=== PATIENT | female | born 1955 | race Hispanic/Latino ===

== ENCOUNTER → 2018-09-19 | Outpatient (CLI) | payer OTHER, MEDICAID | END | disposition home or self-care (01) | LOC: RAH 14:37 | PROVIDERS: ATTEND Family Medicine | DX: Z12.31 Encounter for screening mammogram for malignant neoplasm of breast (principal) | CPT/HCPCS: 77067 ==

== ENCOUNTER → 2019-10-28 | Outpatient (CLI) | payer OTHER, MEDICAID | END | disposition home or self-care (01) | LOC: OIH 13:23 | PROVIDERS: ATTEND Family Medicine | DX: J43.9 Emphysema, unspecified (principal) | CPT/HCPCS: 71046 ==

== ENCOUNTER 2022-09-21 11:16 | Emergency (ER) | payer OTHER, MEDICAID ==
[~2022-09-21] VITALS: Ht 154.9 cm; Wt 47.2 kg
[2022-09-21 12:08] VITALS: BP 160/71
[2022-09-21] MEDS ORDERED: 0.9%NACL 1000ML 1,000 ML IV ONE (13:00)
[2022-09-21] MEDS ORDERED: CEFTRIAXONE 1G VIAL IVP ONE (13:00)
[2022-09-21] MEDS ORDERED: PANTOPRAZOLE 40 MG/VIAL IVP ONE (13:00)
[2022-09-21 13:06] LABS: BASOPHILS % (AUTO) 0.5 % (0.0-5.0); EOSINOPHILS % (AUTO) 1.4 % (0.0-8.0); HEMATOCRIT 39.3 % (36-48); LYMPHOCYTES % (AUTO) 19.8 % (21.0-51.0); MEAN CORPUSCULAR HEMOGLOBIN 30.2 pg (27.0-33.0); MEAN CORPUSCULAR HGB CONC 33.8 g/dL (32.0-36.0); MEAN CORPUSCULAR VOLUME 89.3 fL (79-99); MONOCYTES % (AUTO) 11.8 % (3.0-13.0); NEUTROPHILS % (AUTO) 66.2 % (40.0-77.0); PLATELET COUNT (AUTO) 253 K/uL (130-400); RED CELL DISTRIBUTION WIDTH 12.4 % (11.0-15.5); WHITE BLOOD COUNT (AUTO) 5.9 K/uL (4.8-10.8)
[2022-09-21 13:15] LABS: CREATININE 0.7 mg/dL (0.5-1.5); POTASSIUM 3.7 mmol/L (3.5-5.1)
[2022-09-21 13:17] LABS: ALBUMIN 3.5 g/dL (3.5-5.0); CRP QUANTITATIVE 9.8 mg/L (0.00-9.0); TOTAL PROTEIN, SERUM 6.8 g/dL (6.0-8.3)
[2022-09-21] MEDS ORDERED: IOHEXOL 350 MG/ML 100ML INFUS..BTL IV ONE (13:57)
[2022-09-21 14:16] LABS: APPEARANCE,URINE CLEAR (CLEAR); BILIRUBIN,URINE 0.5 mg/dL (NEGATIVE); COLOR,URINE YELLOW (YELLOW); GLUCOSE, URINE (UA) NEGATIVE (NEGATIVE); KETONES,URINE >=80 mg/dL (NEGATIVE); LEUKOCYTE ESTERASE ,URINE NEGATIVE Leu/uL (NEGATIVE); NITRATE,URINE NEGATIVE (NEGATIVE); OCCULT BLOOD,URINE LARGE (NEGATIVE); PH,URINE 5.5 (5.0-8.0); PROTEIN,URINE 30 mg/dL (NEGATIVE); UROBILINOGEN,URINE 0.2 mg/dL (0.2-1.0)
[2022-09-21 14:21] LABS: BACTERIA,URINE MOD /HPF (None Seen); MUCUS,URINE MANY LPF (None Seen); RBC,URINE 26-50 /HPF (0-1); SQUAMOUS EPITHELIAL CELL,UR RARE /HPF (0-2)
== END 2022-09-21 15:38 | disposition home or self-care (01) ==
LOC: EDH 11:16
DX: R31.9 Hematuria, unspecified (principal); J44.9 Chronic obstructive pulmonary disease, unspecified; I10 Essential (primary) hypertension; M19.90 Unspecified osteoarthritis, unspecified site; Z79.899 Other long term (current) drug therapy
CPT/HCPCS: 99285; 74177; 96374; 71045; 96375; 82270; 80053; 85025; 86140; 81001; 36415; J7030; J0696; C9113; Q9967

== ENCOUNTER 2023-02-14 13:18 | Emergency (ER) | payer MEDICARE, OTHER ==
[~2023-02-14] VITALS: Ht 147.3 cm; Wt 47.6 kg
[2023-02-14] MEDS ORDERED: TETANUS/DIPHTHERIA TOXOID [ADULT] 0.5 ML VIAL IM ONE (14:30)
[2023-02-14 16:04] VITALS: BP 162/70; PULSE 66; RESP 18; O2SAT 99
== END 2023-02-14 16:18 | disposition home or self-care (01) ==
LOC: EDH 13:18
DX: S90.121A Contusion of right lesser toe(s) without damage to nail, initial encounter (principal); I10 Essential (primary) hypertension; J44.9 Chronic obstructive pulmonary disease, unspecified; M19.90 Unspecified osteoarthritis, unspecified site; F41.9 Anxiety disorder, unspecified; F32.A Depression, unspecified; Z88.0 Allergy status to penicillin; X58.XXXA Exposure to other specified factors, initial encounter; Y93.89 Activity, other specified; Y92.89 Other specified places as the place of occurrence of the external cause; Y99.8 Other external cause status
CPT/HCPCS: 73660; 90471; 90714

== ENCOUNTER 2024-12-12 10:12 | Emergency (ER) | payer MEDICARE ==
[~2024-12-12] VITALS: Ht 154.9 cm; Wt 44.9 kg
--- NOTE | 2024-12-12 10:39 | ERN ---
ED Note History of Present Illness Stated Complaint: RIGHT TOE PAIN Chief Complaint: Toe Pain/Injury Time Seen by MD: 10:15 Time Seen by Midlevel: 10:15 Dictation: Patient is a 69-year-old female with a history of hypertension, depression, osteoporosis who presents to the emergency department with complaints of right 4th toe pain. Patient reports that on Monday she accidentally bumped it into a wood cabinet causing it to have a laceration. Patient then reported that again she hit it on another wood cabinet. Unknown Last tetanus denies any other injuries. Allergies: Coded Allergies: Penicillins (Unverified Allergy, Unknown, 02/14/23) Past Medical History Past Medical History: COPD, Hypertension Additional Past Medical Hx: OSTEOPOROSIS, DEPRESSION, ANXIETY, ARTHRITIS Surgical History: None RN Note Reviewed/Agreed w/PFSH: Yes Review of System Dictation Constitutional: Negative for fever,chills, and weight loss Eyes: Negative for injury, pain,redness, and discharge ENT: Negative for injury,pain or swelling Cardiovascular: Negative for chest pain, palpitations, and edema Respiratory: Negative for shortness of breath, cough, and wheezing, Abdomen/GI: Negative for abdominal pain, nausea, vomiting, diarrhea, and constipation Back: Negative for injury and pain : Negative for injury, bleeding and discharge MS/Extremity: Positive for right 4th toe injury Skin: Negative for rash, and discoloration laceration to right 4th toe Neuro: Negative for headache, weakness, numbness, tingling, and seizure Psych: Negative for suicide ideation, homicidal ideation, and hallucinations Initial Vital Sign VS Vital Signs Date Time Temp Pulse Resp B/P (MAP) Pulse Ox O2 Delivery O2 Flow Rate FiO2 12/12/24 10:15 99.1 96 16 157/69 98 Room Air Physical Exam Dictation Vital Signs reviewed General Appearance: Alert, oriented x 3, no acute distress, well developed, nourished. Head and Face: non-traumatic. Eyes: PERRL, pink conjunctivas, eyelid no trauma, anterior chamber with arcus senilis. Ears: Pinnas intact and no signs of trauma or erythema ear canals clear and no discharge TM no erythema Nose: No discharge, no bleeding. Oropharynx: Mouth normal, tongue pink. pharynx clear,no erythema, tonsils no exudates, no abscesses noted, mucous membrane moist Neck: Supple, non-tender, no thyromegaly, no masses, no JVD, no bruits Breast:Deferred Chest:No tenderness, no crepitus, no paradoxical movement, no retractions Lungs:Clear, well-ventilated, symmetric, no rales, no wheezing, no rhonchi, no stridor, good breath sounds bilaterally Heart: Regular rate, regular rhythm, no murmur, no gallops Vascular: no peripheral edema, Abdomen: Soft, positive bowel sounds, nondistended, no guarding, nontender, no rebound, no masses no hepatomegaly, no splenomegaly, no Cagle's sign, no hernias. Rectal: Deferred Genital: Deferred Neurological: Normal speech, motor function intact, sensory function intact Musculoskeletal: Neck nontender, full range of motion, back nontender, full range of motion, Extremities: nontender, full range of motion , right 4th toe with swelling, less than 1 cm to dorsal aspect of right toe, no active bleeding, scabbing, cap refill less than 2 seconds Skin: Color pink, dry, no turgor, no rash, no lacerations, no abrasions, no contusions. Lymphatic: Deferred Results (Laboratory/Radiology) Laboratory/Radiology REASON: right 4th toe injury ORDERING PHYSICIAN: XIOMARA RAMOS PROCEDURE: TOES RT - TOE(S) 2+VWS RT TOE(S) 2+VWS RT HISTORY: Right fourth toe injury COMPARISON: None TECHNIQUE: 3 images of right fourth toe were obtained. FINDINGS: There is no acute displaced fracture or dislocation. Degenerative changes are seen. IMPRESSION: 1. Findings as described above. Labs Reviewed?: Yes ED Course ED Course Orders Procedure Category Date Status Time Toe(S) 2+Vws Rt RAD 12/12/24 Resulted 10:32 Tetanus,Diphtheria PHA 12/12/24 Complete Tox [Adult] (Diphther 11:00 Ketorolac PHA 12/12/24 Complete Tromethamine 15mg/Ml 11:00 Acetaminophen 500mg PHA 12/12/24 Complete Tab (Tylenol 500mg T 11:00 Current Medications Medications (Trade) Dose Ordered Sig/[place] Route PRN Reason Start Time Stop Time Status Last Admin Dose Admin Acetaminophen (TYLenol 500MG TAB) 1,000 mg ONCE ONCE PO 12/12/24 11:00 12/12/24 11:01 DC 12/12/24 10:56 Ketorolac Tromethamine (toRADol) 15 mg ONCE ONCE IM 12/12/24 11:00 12/12/24 11:01 DC 12/12/24 10:57 Tetanus/ Diphtheria Toxoids Adsorbed (DiphthERIA-teTANUS TOXOID [ADULT]/ DECAVAC) 0.5 ml ONCE ONCE IM 12/12/24 11:00 12/12/24 11:01 DC 12/12/24 10:59 Vital Signs Date Time Temp Pulse Resp B/P (MAP) Pulse Ox O2 Delivery O2 Flow Rate FiO2 12/12/24 10:15 99.1 96 16 157/69 98 Room Air Medical Decision Making MDM Patient is a 69-year-old female with a history of hypertension, depression, osteoporosis who presents to the emergency department with complaints of right 4th toe pain. Patient reports that on Monday she accidentally bumped it into a wood cabinet causing it to have a laceration. Patient then reported that again she hit it on another wood cabinet. Unknown Last tetanus denies any other injuries. X-ray showed no acute fractures or dislocations. Patient laceration appears to be healing well, no drainage, scabbing noted. Patient instructed to wear of the shoes to avoid any further injury. Patient in no acute distress will be discharged to follow up with PCP. Differential diagnosis: Toe fracture, laceration, toe contusion Need for hospitalization: Patient does not meet criteria for hospitalization. There are no social concerns with this patient. DX & DISP Disposition: Discharge Departure Impression: Primary Impression: Contusion, toe Condition: Stable Additional Instructions: Please follow up with your primary doctor in 1-2 days. About being barefooted to prevent any further injury. If symptoms worsen please return to ER. FOLLOW-UP WITH PRIMARY CARE PROVIDER IN 1 TO 2 DAYS. TAKE MEDICATIONS DIRECTED HERE IN THE EMERGENCY ROOM. OKAY TO CONTINUE HOME MEDICATIONS UNLESS OTHERWISE DISCUSSED DURING YOUR VISIT IN THE EMERGENCY ROOM TODAY. RETURN TO YOUR NEAREST EMERGENCY ROOM IF SYMPTOMS WORSEN OR IF THERE IS NO IMPROVEMENT. CALL 911 IF YOU NEED IMMEDIATE ASSISTANCE. TAKE TYLENOL OR MOTRIN [id number] NEEDED AND IF NO CONTRAINDICATIONS ARE PRESENT. INCREASE ORAL HYDRATION. A WOUND CULTURE OR URINE CULTURE WAS ORDERED HERE IN THE EMERGENCY ROOM DEPARTMENT PLEASE FOLLOW-UP WITH PRIMARY CARE PROVIDER AND ADVISE THEM TO GET REPEAT PORTS FROM OUR FACILITY. IF YOU HAD ANY JAIMIE WRAP/SPLINTS THAT WERE APPLIED HERE, PLEASE DO NOT REMOVE THEM UNTIL YOU SEE YOUR PRIMARY CARE OR SPECIALTY. Referrals: STEPHANIE HARGROVE MD (PCP) Time of Disposition: 12:36 I have reviewed the case, and I agree with, Diagnosis and Plan XIOMARA RAMOS COOKER SULFATE December 12, 2024 10:39
[2024-12-12] MEDS: acetaMINOPHEN 500 MG TABLET PO ONE (10:56)
[2024-12-12] MEDS: ketOROlac 15MG/ML VIAL (15MG/ML) IM ONE (10:57)
[2024-12-12] MEDS: teTANUS/diphthERIA TOXOID [ADULT] 0.5 ML VIAL IM ONE (10:59)
--- NOTE | 2024-12-12 12:15 | HMCIMG ---
TOE(S) 2+VWS RT HISTORY: Right fourth toe injury COMPARISON: None TECHNIQUE: 3 images of right fourth toe were obtained. FINDINGS: There is no acute displaced fracture or dislocation. Degenerative changes are seen. IMPRESSION: 1. Findings as described above.
[2024-12-12 12:40] VITALS: BP 151/65; PULSE 90; RESP 16; TEMP 99; O2SAT 100
== END 2024-12-12 12:49 | disposition home or self-care (01) ==
LOC: EDH 10:12
DX: S90.121A Contusion of right lesser toe(s) without damage to nail, initial encounter (principal); S90.414A Abrasion, right lesser toe(s), initial encounter; J44.9 Chronic obstructive pulmonary disease, unspecified; I10 Essential (primary) hypertension; F32.A Depression, unspecified; M19.90 Unspecified osteoarthritis, unspecified site; Z88.0 Allergy status to penicillin; W22.8XXA Striking against or struck by other objects, initial encounter; Y93.89 Activity, other specified; Y92.89 Other specified places as the place of occurrence of the external cause; Y99.8 Other external cause status
CPT/HCPCS: 99284; 90714; 73660; 96372; 90471; J1885